=== PATIENT | male | born 1970 | race Caucasian/White ===

== ENCOUNTER 2017-03-17 16:04 | Emergency (ER) | payer OTHER, MEDICAID ==
[~2017-03-17 16:04] MED LIST: KEPP500T3 PO; METO50 PO; PHEN100 PO
[2017-03-17 16:08] VITALS: BP 126/74; PULSE 80; RESP 15; TEMP 98.4; O2SAT 96
--- NOTE | 2017-03-17 16:41 | PD ---
Physical Exam Time Seen by Provider: 16:40 Narrative 46-year-old male presents with complaint of rash to bilateral lower extremities and back that started today. Reports rash is itchy. Denies fever or vomiting. Denies new exposures to lotions, soaps, detergents, medications, foods, environmental exposures. Patient seen in triage. Vital signs reviewed. Patient awaiting bed placement. Data Data Last Documented VS Vital Signs Date Time Temp Pulse Resp B/P (MAP) Pulse Ox O2 Delivery O2 Flow Rate FiO2 03/17/17 16:08 98.4 80 15 126/74 (91) 96 MDM Supervised Visit with RYAN: Margaret Corea Mar 17, 2017 16:41
== END 2017-03-17 22:46 | disposition left against medical advice (07) ==
LOC: NED 16:04
DX: R21 Rash and other nonspecific skin eruption (principal)
CPT/HCPCS: 99281

== ENCOUNTER 2017-11-15 15:58 | Inpatient (IN) | payer OTHER, MEDICARE, MEDICAID ==
[~2017-11-15] VITALS: Ht 162.6 cm; Wt 66.8 kg
[2017-11-15] MEDS ORDERED: LORazepam 2 MG/ML VIAL ONE (16:10)
[2017-11-15] MEDS ORDERED: HALOPERIDOL LACTATE 5 MG/ML AMP ONE (16:11)
[2017-11-15] MEDS ORDERED: HALOPERIDOL LACTATE 5 MG/ML AMP IM ONE ×2 (16:30→17:00)
[2017-11-15] MEDS ORDERED: LORazepam 2 MG/ML VIAL IM ONE (16:30)
[2017-11-15] MEDS ORDERED: diphenhydrAMINE HCL 50 MG/ML VIAL IM ONE (17:00)
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
[2017-11-15 17:37] LABS: AUTOMATED NEUTROPHIL # 4.3 TH/MM3 (1.8-7.7); BASOPHIL % 0.6 % (0.0-2.0); EOSINOPHIL # 0.1 TH/MM3 (0-0.4); HEMATOCRIT 45.6 % (39.0-51.0); HEMOGLOBIN 15.8 GM/DL (13.0-17.0); LYMPH % 19.6 % (9.0-44.0); LYMPHOCYTE # 1.2 TH/MM3 (1.0-4.8); MEAN CELL VOLUME 91.7 FL (80.0-100.0); MEAN CORPUSCULAR HEMOGLOBIN 31.8 PG (27.0-34.0); MEAN CORPUSCULAR HGB CONC 34.6 % (32.0-36.0); MEAN PLATELET VOLUME 8.5 FL (7.0-11.0); MONO % 9.4 % (0.0-8.0); MONOCYTE # 0.6 TH/MM3 (0-0.9); NEUT % 69.4 % (16.0-70.0); PLATELET COUNT 210 TH/MM3 (150-450); RED BLOOD COUNT 4.97 MIL/MM3 (4.50-5.90); WHITE BLOOD COUNT 6.2 TH/MM3 (4.0-11.0)
[2017-11-15] MEDS ORDERED: DIVALPROEX SODIUM E.R. 500 MG TAB PO ONE (18:00)
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
[2017-11-15] MEDS ORDERED: LORazepam 2 MG/ML VIAL IM PRN (18:15)
[2017-11-15] MEDS ORDERED: ACETAMINOPHEN 325 MG TAB PO PRN (18:15)
[2017-11-15] MEDS ORDERED: LORazepam 1 MG TAB PO PRN (18:15)
[2017-11-15] MEDS ORDERED: LORazepam 0.5 MG TAB PO PRN (18:15)
[2017-11-15] MEDS ORDERED: ALUMINUM/MAGNESIUM/SIMETH 30 ML CUP PO PRN (18:15)
[2017-11-15] MEDS ORDERED: MAGNESIUM HYDROXIDE SUSP 30 ML CUP PO PRN (18:15)
[2017-11-15 18:26] VITALS: BP 157/67; PULSE 86; RESP 16; TEMP 97.8; O2SAT 97
[2017-11-15 18:45] LABS: ALBUMIN 3.9 GM/DL (3.4-5.0); ALKALINE PHOSPHATASE 131 U/L (45-117); ALT (GPT) 32 U/L (12-78); AST (GOT) 24 U/L (15-37); BICARBONATE 26.7 MEQ/L (21.0-32.0); BLOOD UREA NITROGEN 9 MG/DL (7-18); CALCIUM 9.3 MG/DL (8.5-10.1); CHLORIDE 105 MEQ/L (98-107); CREATININE 1.19 MG/DL (0.60-1.30); GLOMERULAR FILTRATION RATE 66 ML/MIN (>89); GLUCOSE,RANDOM 78 MG/DL (74-106); SODIUM (NA) 140 MEQ/L (136-145); TOTAL BILIRUBIN ADULT 0.4 MG/DL (0.2-1.0); TOTAL PROTEIN 7.2 GM/DL (6.4-8.2)
--- NOTE | 2017-11-15 19:00 | PD ---
Physical Exam Date Seen by Provider: Nov 15, 2017 Time Seen by Provider: 19:11 Narrative For full history and physical examination please see previous providers note. I assumed care of this patient at the end of my attending physician shift. At that time labs were pending. Data Data Orders Orders Lorazepam Inj (Ativan Inj) (11/15/17 16:10) Haloperidol Inj (Haldol Inj) (11/15/17 16:11) Haloperidol Inj (Haldol Inj) (11/15/17 16:30) Lorazepam Inj (Ativan Inj) (11/15/17 16:30) Restraints Violent (11/15/17 16:24) Diet Regular Basic (11/15/17 Dinner) Haloperidol Inj (Haldol Inj) (11/15/17 17:00) Diphenhydramine Inj (Benadryl Inj) (11/15/17 17:00) Complete Blood Count With Diff (11/15/17 16:48) Comprehensive Metabolic Panel (11/15/17 16:48) Thyroid Stimulating Hormone (11/15/17 16:48) Psych Screen (11/15/17 16:48) Drug Screen, Random Urine (11/15/17 16:48) Alcohol (Ethanol) (11/15/17 16:48) Phenytoin (Dilantin) (11/15/17 21:00) Metoprolol Succinate Er (Toprol Xl) (11/16/17 09:00) Quetiapine (Seroquel) (11/15/17 21:00) Divalproex Er (Depakote Er) (11/15/17 21:00) Divalproex Er (Depakote Er) (11/15/17 18:00) Free Dilantin (Phenytoin,Free) (11/15/17 17:57) Admit To Inpatient Psych (11/15/17 ) Vital Signs (Adult) MILVIA.Q12H.E (11/15/17 18:01) Activity Oob Ad Ifrah (11/15/17 18:01) Lorazepam (Ativan) (11/15/17 18:15) Lorazepam Inj (Ativan Inj) (11/15/17 18:15) Lorazepam (Ativan) (11/15/17 18:15) Lorazepam Inj (Ativan Inj) (11/15/17 18:15) Acetaminophen (Tylenol) (11/15/17 18:15) Magnesium Hydroxide Liq (Milk Of Magnesi (11/15/17 18:15) Al-Mag Hy-Si 40-40-4 Mg/Ml Liq (Mag-Al P (11/15/17 18:15) Nicotine 21 Mg Patch.24 Hr (Habitrol 21 (11/15/17 18:15) Basic Metabolic Panel (Bmp) (11/16/17 06:00) Lipid Profile (11/16/17 06:00) Hemoglobin (Hgb) A1c (11/16/17 06:00) Levetiracetam (Keppra) (11/15/17 21:00) Labs Laboratory Tests Test 11/15/17 17:15 White Blood Count 6.2 TH/MM3 Red Blood Count 4.97 MIL/MM3 Hemoglobin 15.8 GM/DL Hematocrit 45.6 % Mean Corpuscular Volume 91.7 FL Mean Corpuscular Hemoglobin 31.8 PG Mean Corpuscular Hemoglobin Concent 34.6 % Red Cell Distribution Width 13.0 % Platelet Count 210 TH/MM3 Mean Platelet Volume 8.5 FL Neutrophils (%) (Auto) 69.4 % Lymphocytes (%) (Auto) 19.6 % Monocytes (%) (Auto) 9.4 % Eosinophils (%) (Auto) 1.0 % Basophils (%) (Auto) 0.6 % Neutrophils # (Auto) 4.3 TH/MM3 Lymphocytes # (Auto) 1.2 TH/MM3 Monocytes # (Auto) 0.6 TH/MM3 Eosinophils # (Auto) 0.1 TH/MM3 Basophils # (Auto) 0.0 TH/MM3 CBC Comment DIFF FINAL Differential Comment Blood Urea Nitrogen 9 MG/DL Creatinine 1.19 MG/DL Random Glucose 78 MG/DL Total Protein 7.2 GM/DL Albumin 3.9 GM/DL Calcium Level 9.3 MG/DL Alkaline Phosphatase 131 U/L Aspartate Amino Transf (AST/SGOT) 24 U/L Alanine Aminotransferase (ALT/SGPT) 32 U/L Total Bilirubin 0.4 MG/DL Sodium Level 140 MEQ/L Potassium Level 4.2 MEQ/L Chloride Level 105 MEQ/L Carbon Dioxide Level 26.7 MEQ/L Anion Gap 8 MEQ/L Estimat Glomerular Filtration Rate 66 ML/MIN Thyroid Stimulating Hormone 3rd Gen 2.250 uIU/ML Ethyl Alcohol Level LESS THAN 3 MG/DL [facility] Medical Record Reviewed: Yes Supervised Visit with RYAN: Yes Interpretation(s) Laboratory Tests Test 11/15/17 17:15 White Blood Count 6.2 TH/MM3 Red Blood Count 4.97 MIL/MM3 Hemoglobin 15.8 GM/DL Hematocrit 45.6 % Mean Corpuscular Volume 91.7 FL Mean Corpuscular Hemoglobin 31.8 PG Mean Corpuscular Hemoglobin Concent 34.6 % Red Cell Distribution Width 13.0 % Platelet Count 210 TH/MM3 Mean Platelet Volume 8.5 FL Neutrophils (%) (Auto) 69.4 % Lymphocytes (%) (Auto) 19.6 % Monocytes (%) (Auto) 9.4 % Eosinophils (%) (Auto) 1.0 % Basophils (%) (Auto) 0.6 % Neutrophils # (Auto) 4.3 TH/MM3 Lymphocytes # (Auto) 1.2 TH/MM3 Monocytes # (Auto) 0.6 TH/MM3 Eosinophils # (Auto) 0.1 TH/MM3 Basophils # (Auto) 0.0 TH/MM3 CBC Comment DIFF FINAL Differential Comment Blood Urea Nitrogen 9 MG/DL Creatinine 1.19 MG/DL Random Glucose 78 MG/DL Total Protein 7.2 GM/DL Albumin 3.9 GM/DL Calcium Level 9.3 MG/DL Alkaline Phosphatase 131 U/L Aspartate Amino Transf (AST/SGOT) 24 U/L Alanine Aminotransferase (ALT/SGPT) 32 U/L Total Bilirubin 0.4 MG/DL Sodium Level 140 MEQ/L Potassium Level 4.2 MEQ/L Chloride Level 105 MEQ/L Carbon Dioxide Level 26.7 MEQ/L Anion Gap 8 MEQ/L Estimat Glomerular Filtration Rate 66 ML/MIN Thyroid Stimulating Hormone 3rd Gen 2.250 uIU/ML Ethyl Alcohol Level LESS THAN 3 MG/DL Diagnosis Primary Impression: Medical clearance for psychiatric admission Condition: Stable Destinee Fabian Nov 15, 2017 19:00
[2017-11-15 20:23] VITALS: BP 131/93; PULSE 94; RESP 16; TEMP 98.1; O2SAT 100
[2017-11-15] MEDS: QUEtiapine FUMARATE 300 MG TAB PO SCH (20:48)
[2017-11-15] MEDS: DIVALPROEX SODIUM E.R. 250 MG TAB PO SCH (20:50)
[2017-11-15] MEDS: levETIRAcetam 250 MG TAB PO SCH (20:50)
[2017-11-15] MEDS: PHENYTOIN SODIUM 100 MG CAP PO SCH (20:51)
[2017-11-15] MEDS: REMOVE OLD NICODERM (NICOTINE) PATCH T-DERMAL SCH (21:00)
[2017-11-16 06:35] VITALS: BP 95/54; PULSE 79; RESP 16; TEMP 97.6; O2SAT 97
[2017-11-16] MEDS: levETIRAcetam 250 MG TAB PO SCH (09:00)
[2017-11-16] MEDS: DIVALPROEX SODIUM E.R. 250 MG TAB PO SCH ×2 (09:00→20:42)
[2017-11-16] MEDS: PHENYTOIN SODIUM 100 MG CAP PO SCH ×2 (09:00→20:42)
[2017-11-16] MEDS: METOPROLOL SUCCINATE 25 MG EXTENDED RELEASE TAB PO SCH ×2 (09:00→09:06)
[2017-11-16] MEDS: NICOTINE 21 MG/24 HR PATCH T-DERMAL SCH (09:00)
[2017-11-16 09:40] LABS: BLOOD UREA NITROGEN 11 MG/DL (7-18); CALCIUM 8.9 MG/DL (8.5-10.1); CHLORIDE 102 MEQ/L (98-107); CREATININE 1.01 MG/DL (0.60-1.30); GLOMERULAR FILTRATION RATE 80 ML/MIN (>89); GLUCOSE,RANDOM 87 MG/DL (74-106); SODIUM (NA) 138 MEQ/L (136-145)
[2017-11-16 09:41] LABS: CHOLESTEROL 154 MG/DL (120-200); PHENYTOIN (DILANTIN) 15.7 MCG/ML (10.0-20.0); TRIGLYCERIDES 136 MG/DL (42-150)
[2017-11-16 09:43] LABS: HDL CHOLESTEROL 51.2 MG/DL (40.0-60.0); LDL CHOLESTEROL 76 MG/DL (0-99)
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
--- NOTE | 2017-11-16 13:01 | HHI.PYPN ---
Subjective Remarks This is a request for second opinion. Admission note was reviewed and I agree with the history. Patient was seen and case was discussed with nursing. Patient is loud, angry, rude and very internally preoccupied. He has very poor insight and is quite tangential. Has not required any ETO's as of yet. Mental Status Examination Appearance: Dirty, Disheveled Consciousness: Alert Orientation: x4 Motor Activity: Normal gait Speech: Unremarkable Language: Adequate Fund of Knowledge: Adequate Attention and Concentration: Adequate Memory: Unremarkable Mood: Angry Affect: Irritable Thought Process & Associations: Disorganized, Tangential Thought Content: Appropriate Hallucination Type: None Delusion Type: Paranoid Suicidal Ideation: No Suicidal Plan: No Suicidal Intention: No Homicidal Ideation: No Homicidal Plan: No Homicidal Intention: No Insight: Poor Judgment: Poor Results Labs Test 11/15/17 17:15 11/15/17 18:35 11/15/17 18:40 11/16/17 08:55 White Blood Count 6.2 TH/MM3 Red Blood Count 4.97 MIL/MM3 Hemoglobin 15.8 GM/DL Hematocrit 45.6 % Mean Corpuscular Volume 91.7 FL Mean Corpuscular Hemoglobin 31.8 PG Mean Corpuscular Hemoglobin Concent 34.6 % Red Cell Distribution Width 13.0 % Platelet Count 210 TH/MM3 Mean Platelet Volume 8.5 FL Neutrophils (%) (Auto) 69.4 % Lymphocytes (%) (Auto) 19.6 % Monocytes (%) (Auto) 9.4 % Eosinophils (%) (Auto) 1.0 % Basophils (%) (Auto) 0.6 % Neutrophils # (Auto) 4.3 TH/MM3 Lymphocytes # (Auto) 1.2 TH/MM3 Monocytes # (Auto) 0.6 TH/MM3 Eosinophils # (Auto) 0.1 TH/MM3 Basophils # (Auto) 0.0 TH/MM3 CBC Comment DIFF FINAL Differential Comment Blood Urea Nitrogen 9 MG/DL 11 MG/DL Creatinine 1.19 MG/DL 1.01 MG/DL Random Glucose 78 MG/DL 87 MG/DL Total Protein 7.2 GM/DL Albumin 3.9 GM/DL Calcium Level 9.3 MG/DL 8.9 MG/DL Alkaline Phosphatase 131 U/L Aspartate Amino Transf (AST/SGOT) 24 U/L Alanine Aminotransferase (ALT/SGPT) 32 U/L Total Bilirubin 0.4 MG/DL Sodium Level 140 MEQ/L 138 MEQ/L Potassium Level 4.2 MEQ/L 4.0 MEQ/L Chloride Level 105 MEQ/L 102 MEQ/L Carbon Dioxide Level 26.7 MEQ/L 27.0 MEQ/L Anion Gap 8 MEQ/L 9 MEQ/L Estimat Glomerular Filtration Rate 66 ML/MIN 80 ML/MIN Thyroid Stimulating Hormone 3rd Gen 2.250 uIU/ML Ethyl Alcohol Level LESS THAN 3 MG/DL Urine Opiates Screen NEG Urine Barbiturates Screen NEG Urine Amphetamines Screen NEG Urine Benzodiazepines Screen NEG Urine Cocaine Screen NEG Urine Cannabinoids Screen NEG Triglycerides Level 136 MG/DL Cholesterol Level 154 MG/DL LDL Cholesterol 76 MG/DL HDL Cholesterol 51.2 MG/DL Cholesterol/HDL Ratio 3.00 RATIO Phenytoin (Dilantin) Level 15.7 MCG/ML Vitals/IOs Vital Signs Date Time Temp Pulse Resp B/P (MAP) Pulse Ox O2 Delivery O2 Flow Rate FiO2 11/16/17 06:35 97.6 79 16 95/54 (68) 97 11/15/17 18:26 Room Air Assessment & Plan Problem List: (1) Bipolar disorder ICD Codes: F31.9 - Bipolar disorder, unspecified Status: Chronic Assessment & Plan I agree with the first opinion. Criteria include acute deanna Justification for Cont. Inpt. Patient would decompensate in a less restrictive setting Nabil Hughes DO Nov 16, 2017 13:01
[2017-11-16 15:17] LABS: HEMOGLOBIN A1C 4.5 % (4.3-6.0)
[2017-11-16 18:07] VITALS: BP 125/77; PULSE 84; RESP 19; TEMP 98.5; O2SAT 98
[2017-11-16] MEDS: levETIRAcetam 500 MG TAB PO SCH (20:42)
[2017-11-16] MEDS: QUEtiapine FUMARATE 300 MG TAB PO SCH (20:42)
[2017-11-16] MEDS: REMOVE OLD NICODERM (NICOTINE) PATCH T-DERMAL SCH (20:50)
[2017-11-17 06:11] VITALS: BP 125/86; PULSE 87; RESP 16; TEMP 97.4; O2SAT 100
[2017-11-17] MEDS: DIVALPROEX SODIUM E.R. 250 MG TAB PO SCH ×2 (08:34→20:11)
[2017-11-17] MEDS: METOPROLOL SUCCINATE 25 MG EXTENDED RELEASE TAB PO SCH (08:35)
[2017-11-17] MEDS: NICOTINE 21 MG/24 HR PATCH T-DERMAL SCH (08:35)
[2017-11-17] MEDS: PHENYTOIN SODIUM 100 MG CAP PO SCH ×2 (08:35→20:11)
[2017-11-17] MEDS: levETIRAcetam 500 MG TAB PO SCH ×2 (08:35→20:11)
--- NOTE | 2017-11-17 11:22 | HHI.PYPN ---
Subjective Remarks Patient was seen and case discussed with nursing. Patient has not needed any ETO's today. He remains internally stimulated or flight of ideas and irritability. Poor insight and judgment. Preoccupied with actions of other patients. Compliant with medications Mental Status Examination Appearance: Dirty, Disheveled Consciousness: Alert Orientation: x4 Motor Activity: Normal gait Speech: Unremarkable Language: Adequate Fund of Knowledge: Adequate Attention and Concentration: Adequate Memory: Unremarkable Mood: Angry Affect: Irritable, Labile Thought Process & Associations: Disorganized, Tangential Thought Content: Appropriate Hallucination Type: None Delusion Type: Paranoid Suicidal Ideation: No Suicidal Plan: No Suicidal Intention: No Homicidal Ideation: No Homicidal Plan: No Homicidal Intention: No Insight: Poor Judgment: Poor Results Labs Test 11/17/17 07:45 Phenytoin (Dilantin) Level 20.0 MCG/ML Vitals/IOs Vital Signs Date Time Temp Pulse Resp B/P (MAP) Pulse Ox O2 Delivery O2 Flow Rate FiO2 11/17/17 06:11 97.4 87 16 125/86 (99) 100 11/15/17 18:26 Room Air Assessment & Plan Problem List: (1) Bipolar disorder ICD Codes: F31.9 - Bipolar disorder, unspecified Status: Chronic Assessment & Plan Continue current treatment plan Justification for Cont. Inpt. Patient would decompensate in a less restrictive setting Nabil Hughes DO Nov 17, 2017 11:22
[2017-11-17 17:20] VITALS: BP 129/87; PULSE 71; RESP 18; TEMP 98.5; O2SAT 99
[2017-11-17] MEDS: QUEtiapine FUMARATE 300 MG TAB PO SCH (20:11)
[2017-11-17] MEDS: REMOVE OLD NICODERM (NICOTINE) PATCH T-DERMAL SCH (21:00)
[2017-11-18 06:12] VITALS: BP 107/65; PULSE 72; RESP 16; TEMP 97.8; O2SAT 97
[2017-11-18] MEDS: DIVALPROEX SODIUM E.R. 250 MG TAB PO SCH ×2 (08:29→09:00)
[2017-11-18] MEDS: PHENYTOIN SODIUM 100 MG CAP PO SCH ×3 (08:29→20:05)
[2017-11-18] MEDS: METOPROLOL SUCCINATE 25 MG EXTENDED RELEASE TAB PO SCH ×2 (08:29→09:00)
[2017-11-18] MEDS: NICOTINE 21 MG/24 HR PATCH T-DERMAL SCH (09:00)
[2017-11-18] MEDS: levETIRAcetam 500 MG TAB PO SCH ×2 (09:00→20:06)
[2017-11-18] MEDS: LORazepam 2 MG/ML VIAL IM PRN (10:01)
--- NOTE | 2017-11-18 14:27 | HHI.PYPN ---
Subjective Remarks The patient was seen today for psychiatric reevaluation. The patient was widely discussed with nurse in charge. The patient is seen for psychiatric reevaluation in his room in the unit, he is irritable, internally stimuli, alleging that he does not want to be around people, that he does not know the people in this unit, he does not know who might want to harm him. He denies suicidal enemas ideation, he denies visual and auditory hallucinations. He has been compliant with his medications. However, as per nurse, the patient has been agitated, disruptive in the unit, verbally hostile, needed multiple redirections. He is oriented 3. Review of Systems Constitutional: DENIES: Diaphoretic episodes, Fatigue, Fever, Weight gain, Weight loss, Chills, Dizziness, Change in appetite, Night Sweats Endocrine: DENIES: Heat/cold intolerance, Polydipsia, Polyuria, Polyphagia Eyes: DENIES: Blurred vision, Diplopia, Eye inflammation, Eye pain, Vision loss , Photosensitivity, Double Vision Ears, nose, mouth, throat: DENIES: Tinnitus, Hearing loss, Vertigo, Nasal discharge, Oral lesions, Throat pain, Hoarseness, Ear Pain, Running Nose, Epistaxis, Sinus Pain, Toothache, Odynophagia Respiratory: DENIES: Apneas, Cough, Snoring, Wheezing, Hemoptysis, Sputum production, Shortness of breath Cardiovascular: DENIES: Chest pain, Palpitations, Syncope, Dyspnea on Exertion , PND, Lower Extremity Edema, Orthopnea, Claudication Gastrointestinal: DENIES: Abdominal pain, Black stools, Bloody stools, Constipation, Diarrhea, Nausea, Vomiting, Difficulty Swallowing, Anorexia Genitourinary: DENIES: Sexual dysfunction, Urinary frequency, Urinary incontinence, Urgency, Hematuria, Dysuria, Nocturia, Penile Discharge, Testicular Pain, Testicular Swelling Musculoskeletal: DENIES: Joint pain, Muscle aches, Stiffness, Joint Swelling, Back pain, Neck pain Integumentary: DENIES: Abnormal pigmentation, Nail changes, Pruritus, Rash Hematologic/lymphatic: DENIES: Bruising, Lymphadenopathy Immunologic/allergic: DENIES: Eczema, Urticaria Neurologic: DENIES: Abnormal gait, Headache, Localized weakness, Paresthesias, Seizures, Speech Problems, Tremor, Poor Balance Psychiatric: COMPLAINS OF: Agitation, DENIES: Anxiety, Confusion, Mood changes , Depression, Hallucinations, Suicidal Ideation, Homicidal Ideation, Delusions Mental Status Examination Appearance: Dirty, Disheveled Consciousness: Alert Orientation: x4 Motor Activity: Normal gait Speech: Unremarkable Language: Adequate Fund of Knowledge: Adequate Attention and Concentration: Adequate Memory: Unremarkable Mood: Angry Affect: Irritable, Labile Thought Process & Associations: Disorganized, Tangential Thought Content: Appropriate Hallucination Type: None Delusion Type: Paranoid Suicidal Ideation: No Suicidal Plan: No Suicidal Intention: No Homicidal Ideation: No Homicidal Plan: No Homicidal Intention: No Insight: Poor Judgment: Poor Results Vitals/IOs Vital Signs Date Time Temp Pulse Resp B/P (MAP) Pulse Ox O2 Delivery O2 Flow Rate FiO2 11/18/17 06:12 97.8 72 16 107/65 (79) 97 11/15/17 18:26 Room Air Assessment & Plan Problem List: (1) Bipolar disorder ICD Codes: F31.9 - Bipolar disorder, unspecified Status: Chronic Assessment & Plan: The patient continues to be agitated, very irritable, with frequent episodes of verbal hostility. I have reviewed and appreciated neurology consult. They agree with switching Keppra with Depakote for management of seizures and also behavioral dysregulation. Today I will increase the Depakote to 500 mg twice daily, will increase Seroquel to 400 mg at bedtime. Extensive support, psychoeducation and motivation provided. Assessment & Plan Estimated LOS: days Justification for Cont. Inpt. Patient needs to continue psychiatric admission for stabilization and safety Danielito Patricio MD Nov 18, 2017 14:27
[2017-11-18 15:54] VITALS: BP 129/82; PULSE 94; RESP 18; TEMP 98.3; O2SAT 98
[2017-11-18] MEDS: DIVALPROEX SODIUM E.R. 500 MG TAB PO SCH (20:03)
[2017-11-18] MEDS: REMOVE OLD NICODERM (NICOTINE) PATCH T-DERMAL SCH (20:11)
[2017-11-18] MEDS ORDERED: QUEtiapine FUMARATE 200 MG TAB PO SCH (21:00)
[2017-11-19 05:52] VITALS: BP 133/90; PULSE 84; RESP 18; TEMP 97.2; O2SAT 100
[2017-11-19] MEDS: PHENYTOIN SODIUM 100 MG CAP PO SCH ×2 (08:20→20:29)
[2017-11-19] MEDS: DIVALPROEX SODIUM E.R. 500 MG TAB PO SCH ×2 (08:21→20:28)
[2017-11-19] MEDS: levETIRAcetam 500 MG TAB PO SCH (08:21)
[2017-11-19] MEDS: METOPROLOL SUCCINATE 25 MG EXTENDED RELEASE TAB PO SCH (08:21)
[2017-11-19] MEDS: NICOTINE 21 MG/24 HR PATCH T-DERMAL SCH (08:22)
[2017-11-19] MEDS: LORazepam 2 MG/ML VIAL IM PRN (09:16)
--- NOTE | 2017-11-19 16:26 | HHI.PYPN ---
Subjective Remarks The patient was seen today for psychiatric reevaluation. Case was widely discussed with nurse in charge. The patient continues to be quite irritable, agitated, he had an episode of aggressive behavior this morning for which he had to be isolated in the unit, the patient is making several accusations about being poisoned with his medication, people trying to hurt him in the unit, he seems to be very behavioral at this regulated. Patient has been described by the staff as disruptive, verbally hostile. Patient has been compliant with his medications, no significant side effects reported. Review of Systems Psychiatric: COMPLAINS OF: Agitation Except as stated in HPI: all other systems reviewed are Neg Mental Status Examination Appearance: Dirty, Disheveled Consciousness: Alert Orientation: x4 Motor Activity: Normal gait Speech: Unremarkable Language: Adequate Fund of Knowledge: Adequate Attention and Concentration: Adequate Memory: Unremarkable Mood: Angry Affect: Irritable, Labile Thought Process & Associations: Disorganized, Tangential Thought Content: Appropriate Hallucination Type: None Delusion Type: Paranoid Suicidal Ideation: No Suicidal Plan: No Suicidal Intention: No Homicidal Ideation: No Homicidal Plan: No Homicidal Intention: No Insight: Poor Judgment: Poor Results Labs Test 11/19/17 07:04 Phenytoin (Dilantin) Level 18.4 MCG/ML Vitals/IOs Vital Signs Date Time Temp Pulse Resp B/P (MAP) Pulse Ox O2 Delivery O2 Flow Rate FiO2 11/19/17 05:52 97.2 84 18 133/90 (104) 100 11/15/17 18:26 Room Air Assessment & Plan Problem List: (1) Bipolar disorder ICD Codes: F31.9 - Bipolar disorder, unspecified Status: Chronic Assessment & Plan: Today Keppra will be discontinued. Continue Depakote 500 mg for behavioral dysregulation, manic symptoms and seizures prevention. Will order Depakote levels. We will increase quetiapine to 500 mg at bedtime to help with psychosis. Brief supportive psychotherapy provided Assessment & Plan Estimated LOS: days Justification for Cont. Inpt. Patient continues to be destructive, acutely psychotic, he needs to continue psychiatric hospitalization for stabilization Danielito Patricio MD Nov 19, 2017 16:26
[2017-11-19] MEDS ORDERED: PILL SPLITTER OTHER PRN (16:30)
[2017-11-19 17:30] VITALS: BP 126/82; PULSE 81; RESP 19; TEMP 97.8; O2SAT 97
[2017-11-19] MEDS: QUEtiapine FUMARATE 200 MG TAB PO SCH (20:27)
[2017-11-19] MEDS: REMOVE OLD NICODERM (NICOTINE) PATCH T-DERMAL SCH (20:29)
[2017-11-20 06:08] VITALS: BP 120/83; PULSE 77; RESP 18; TEMP 97.4; O2SAT 99
[2017-11-20 07:10] LABS: PHENYTOIN (DILANTIN) 17.7 MCG/ML (10.0-20.0)
[2017-11-20] MEDS: NICOTINE 21 MG/24 HR PATCH T-DERMAL SCH (08:55)
[2017-11-20] MEDS: DIVALPROEX SODIUM E.R. 500 MG TAB PO SCH ×2 (08:56→09:00)
[2017-11-20] MEDS: METOPROLOL SUCCINATE 25 MG EXTENDED RELEASE TAB PO SCH ×2 (08:56→09:00)
[2017-11-20] MEDS: PHENYTOIN SODIUM 100 MG CAP PO SCH ×3 (08:56→20:44)
--- NOTE | 2017-11-20 15:31 | HHI.PYPN ---
Subjective Remarks The patient was seen today for psychiatric reevaluation. The case was discussed with nursing charge. On psychiatric evaluation today the patient presents quite loud, demanding, irritable. The patient is requesting to be discharged immediately, he says that he does not feel safe in the unit. Patient continues to say that medication and food here could be poisoned. Continues to be quite disinhibited, using multiple profanities in his speech. The patient has been disruptive in the unit, irritable, but redirectable. He has been taking his medications, no significant side effects reported. His echo level is back, is 45. Review of Systems Psychiatric: COMPLAINS OF: Agitation, Delusions Except as stated in HPI: all other systems reviewed are Neg Mental Status Examination Appearance: Dirty, Disheveled Consciousness: Alert Orientation: x4 Motor Activity: Normal gait Speech: Unremarkable Language: Adequate Fund of Knowledge: Adequate Attention and Concentration: Adequate Memory: Unremarkable Mood: Angry Affect: Irritable, Labile Thought Process & Associations: Disorganized, Tangential Thought Content: Appropriate Hallucination Type: None Delusion Type: Paranoid Suicidal Ideation: No Suicidal Plan: No Suicidal Intention: No Homicidal Ideation: No Homicidal Plan: No Homicidal Intention: No Insight: Poor Judgment: Poor Results Labs Test 11/20/17 06:00 Phenytoin (Dilantin) Level 17.7 MCG/ML Valproic Acid (Depakene) Level 45 MCG/ML Vitals/IOs Vital Signs Date Time Temp Pulse Resp B/P (MAP) Pulse Ox O2 Delivery O2 Flow Rate FiO2 11/20/17 06:08 97.4 77 18 120/83 (95) 99 Assessment & Plan Problem List: (1) Bipolar disorder ICD Codes: F31.9 - Bipolar disorder, unspecified Status: Chronic Assessment & Plan: Patient continues to exhibit disinhibited behavior, with increased use of profanities in his speech, irritability, defiant behavior, paranoia. Depakote level is 45. Will increase Depakote to 750 mg twice daily for behavioral control and also for seizures. Assessment & Plan Estimated LOS: days Justification for Cont. Inpt. The patient continues to be psychotic, he needs to continue psychiatric hospitalization for stabilization Danielito Patricio MD Nov 20, 2017 15:31
[2017-11-20 16:43] VITALS: BP 130/82; PULSE 83; RESP 18; TEMP 98.6; O2SAT 98
[2017-11-20] MEDS: QUEtiapine FUMARATE 200 MG TAB PO SCH (20:43)
[2017-11-20] MEDS: DIVALPROEX SODIUM E.R. 250 MG TAB PO SCH (20:43)
[2017-11-20] MEDS: REMOVE OLD NICODERM (NICOTINE) PATCH T-DERMAL SCH (20:44)
[2017-11-21 06:08] VITALS: BP 150/91; PULSE 90; RESP 16; TEMP 97.7; O2SAT 97
[2017-11-21] MEDS: DIVALPROEX SODIUM E.R. 250 MG TAB PO SCH (08:12)
[2017-11-21] MEDS: PHENYTOIN SODIUM 100 MG CAP PO SCH (08:13)
[2017-11-21] MEDS: METOPROLOL SUCCINATE 25 MG EXTENDED RELEASE TAB PO SCH (08:13)
[2017-11-21] MEDS: NICOTINE 21 MG/24 HR PATCH T-DERMAL SCH (08:16)
[2017-11-21] MEDS ORDERED: QUET1TAB9 PO (12:49)
[2017-11-21] MEDS ORDERED: METO1TAB42 PO (12:49)
[2017-11-21] MEDS ORDERED: DIVA250ER PO (12:49)
[2017-11-21] MEDS ORDERED: DILA100C PO (12:49)
--- NOTE | 2017-11-21 12:55 | HHI.DS ---
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 Mcginnis, he is on Seroquel 300 mg at bedtime, medical history of hypertension, seizures, TBI, who was brought in by law enforcement for aggressive behavior. Initial history is obtained from law- enforcement. Mom is a primary registered radiation therapist and has power of contracts attorney. Law- enforcement reports that mom was trying to take him to a psychiatrist for more aggressive behavior and became physically aggressive with the mom and the police were called. Patient was aggressive and screaming and very physical with law-enforcement. Patient required sedation and restraint immediately upon arrival. The patient was medicated with Haldol 10 mg and Ativan 4 mg IM. I was able to speak with the patient, but he is very oppositional, irritable, refusing to provide information about the reason he is in the hospital. He says that his mother is a liar, he denies psychiatric history, denies suicidal and homicidal ideation, he denies visual and auditory hallucinations, but he is quite loud, unable to follow verbal directions. His mother contacted by phone, was able to explain that the patient has history of bipolar disorder, he has not been taking his medications, he has been increasingly aggressive in the last week, she took him to his outpatient psychiatrist and he saw him to decompensated and recommended an immediate psychiatric admission. His mother says that he has been quite manic, not sleeping, disorganized, acting erratically. She does not know if the patient is using drugs. Tobacco Use In Past 30 Days: 4 or Less Cigarettes/Day Alcohol Use: Never Hospital Course The patient was admitted in psychiatry due to severe aggressive behavior, agitation, disinhibited behavior. The patient had an initial psychosocial psychiatric assessment. Safety measures were taken. Patient was transfer from the ER to 2700. Initially the patient was very upset, irritable, physically and verbally aggressive, had to be restrained mechanically, physically and chemically. Was a started in his medication Seroquel 200 mg. This medication was titrated up to 500 mg during the hospitalization. He also was in Keppra 500 mg twice daily for seizures that was switched to Depakote 500 mg twice daily to treat seizures and at the same time poor impulse control. The pedicle was titrated up to 750 mg twice daily. During the hospitalization the patient had several episodes of agitation, verbal hostility, he needed to be redirected multiple times. He is to become quite demanding, manipulative, using several profanities in his vocabulary. He was compliant with his medications, no significant side effects reported. 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 Patient was taken to court, he was discharged by the ferryboat captain. At the moment of the discharge the patient is irritable, continues to be verbally aggressive, but he denies depression, denies anxiety, denies peaceful and auditory hallucinations, denies suicidal and homicidal ideation. The patient has been compliant with medications, no significant side effects. The mother and the father both, agree that the patient is at baseline. Results Blood Pressure 150 / 91 Vital Signs Date Time Temp Pulse Resp B/P (MAP) Pulse Ox O2 Delivery O2 Flow Rate FiO2 11/21/17 06:08 97.7 90 16 150/91 (110) 97 Laboratory Tests Test 11/19/17 07:04 11/20/17 06:00 11/21/17 06:20 Valproic Acid (Depakene) Level 45 MCG/ML (50-100) Laboratory Results Test 11/16/17 08:55 11/20/17 06:00 Cholesterol Level 154 MG/DL (120-200) HDL Cholesterol 51.2 MG/DL (40.0-60.0) Hemoglobin A1c 4.5 % (4.3-6.0) LDL Cholesterol 76 MG/DL (0-99) Triglycerides Level 136 MG/DL (42-150) Valproic Acid (Depakene) Level 45 MCG/ML (50-100) Summary of Procedures None Pending results at discharge: No Medications # of Antipsychotic meds at D/C: 1 Approp Antipsych med options 1 - Minimum of three failed multiple trials of monotherapy. 2 - Documented plan to taper to monotherapy due to previous use of multiple meds OR cross-taper in progress at D/C. 3 - Documentation of augmentation of Clozapine. 4 - Justification other than those listed in allowable values 1-3, document here : Discharge Discharge Date: Nov 21, 2017 Discharge Diagnosis: (1) Bipolar disorder ICD Code: F31.9 - Bipolar disorder, unspecified Status: Chronic Pt Condition on Discharge: Stable Discharge Disposition: Discharge Home Discharge Instructions Diet Instructions: As Tolerated, No Restrictions Activities you can perform: Regular-No Restrictions Scheduled Appointment: Discharge Time > 30 minutes Mental Status Examination Appearance: Dirty, Disheveled Consciousness: Alert Orientation: x4 Motor Activity: Normal gait Speech: Unremarkable Language: Adequate Fund of Knowledge: Adequate Attention and Concentration: Adequate Memory: Unremarkable Mood: Angry Affect: Irritable, Labile Thought Process & Associations: Disorganized, Tangential Thought Content: Appropriate Hallucination Type: None Delusion Type: Paranoid Suicidal Ideation: No Suicidal Plan: No Suicidal Intention: No Homicidal Ideation: No Homicidal Plan: No Homicidal Intention: No Insight: Poor Judgment: Poor Discharge/Advance Care Plan Health Problems: (1) Bipolar disorder Goals to promote your health * To prevent worsening of your condition and complications * To maintain your health at the optimal level Directions to meet your goals Take your medications as prescribed Follow your dietary instruction Follow activity as directed Keep your appointments as scheduled Take your immunizations and boosters as scheduled If your symptoms worsen call your PCP, if no PCP go to Urgent Care Center or Emergency Room For / questions related to your inpatient stay or results of tests pending at discharge, please contact Dr. Danielito Patricio at Smoking is Dangerous to Your Health. Avoid second hand smoking Danielito Patricio MD Nov 21, 2017 12:55
== END 2017-11-21 14:45 | disposition home or self-care (01) | DRG 885 ==
LOC: NEPJ 15:58 → NEDA 18:02 → H270 19:40
PROVIDERS: ADMIT Psychiatry & Neurology Psychiatry; ATTEND Psychiatry & Neurology Psychiatry
DX: F31.9 Bipolar disorder, unspecified (principal); R56.9 Unspecified convulsions; I10 Essential (primary) hypertension; F07.81 Postconcussional syndrome; F29 Unspecified psychosis not due to a substance or known physiological condition; F22 Delusional disorders; Z91.030 Bee allergy status; Z87.820 Personal history of traumatic brain injury
CPT/HCPCS: 80048; 80053; 80061; 80164; 80185; 80186; 80307; 83036; 84443; 85025; 96372; 96374; 96375; J1630; J2060